=== PATIENT | female | born 1995 | race Hispanic/Latino ===

== ENCOUNTER 2024-07-31 10:38 | Emergency (ER) | payer OTHER, SELFPAY ==
[2024-07-31 10:46] VITALS: BP 123/68; PULSE 79; RESP 14; TEMP 36.5; O2SAT 99; BMI 29.8
--- NOTE | 2024-07-31 11:33 | ED.PREGNANCY ---
HPI - General Chief complaint: OB/Uterine Contractions Stated complaint: Bleeding w/ 12 weeks Time Seen by Provider: 07/31/24 10:58 Source: patient Mode of arrival: Family Vehicle Limitations: no limitations History of Present Illness HPI Narrative: Ms. Major is a very pleasant 29-year-old female, , currently states she is about 12 weeks , LMP however 05/24/2024 (estimated gestation 9 weeks 5 days) who presents to the emergency department for cramping and bleeding in . Patient states 07/16/2023 she started having some bleeding so she went to the ER and had an ultrasound performed which reports that she was 5-6 weeks and there was ?3 sacs?. The bleeding stopped after 2 days. However about 1 week ago she started having some light spotting but was told by the ER that this can be normal so she was trying to not worry however yesterday she started having some heavier bleeding and passing clots after exercising. She was also having some lower abdominal cramping. At this time she states she has very minimal 2/10 lower abdominal occasional cramping and she has somewhat steady light bleeding, she is only needing to use panty liners. She presents to the emergency department for further evaluation of bleeding in . She has not yet seen an OBGYN with this however she does have her 1st appointment scheduled this Thursday with Dr. Madden, her intake has already been completed. She is , not concerned for STDs, no abnormal vaginal discharge or dysuria. No back or flank pain. No fevers chills. No history of surgeries or medical problems. LMP 05/24/2024, estimated gestation 9 weeks 5 days. Positive home test on 06/26/24. Related Data Home Medications Medication Instructions Recorded Confirmed vitamin-ferrous sulfate tab PO 07/26/24 07/26/24 27 mg iron-folic acid 0.8 mg tablet Previous Rx's Medication Instructions Recorded cephalexin 500 mg capsule 500 mg PO TID 7 days #21 caps 07/31/24 Allergies Allergy/AdvReac Type Severity Reaction Status Date / Time No Known Drug Allergies Allergy Verified 07/31/24 10:53 Review of Systems Review of Systems ROS Unobtainable: All systems reviewed & are unremarkable except as noted in HPI and below Exam Narrative Exam Narrative: GENERAL: 29 year old patient appears stated age. Well-developed patient, in no acute distress. HEAD: Atraumatic. Normocephalic. NECK: Trachea midline. Cervical ROM intact. CARDIOVASCULAR: Regular rate and rhythm. RESPIRATORY: ?Nonlabored respirations. ?Speaking in clear, full sentences. ?Clear to auscultation. Breath sounds equal bilaterally. No wheezes, rales, or rhonchi. ? GASTROINTESTINAL: Abdomen soft, non-tender, nondistended. Normal BS : declined EXTREMITIES: No edema or joint tenderness. BACK: Nontender without deformity or crepitance. No flank tenderness. NEURO: AOx3. ?Clear speech. ?Moves all 4 extremities appropriately. SKIN: No rash or erythema of visible areas Initial Vital Signs Initial Vital Signs: Vital Signs Temperature 97.7 F 07/31/24 10:46 Pulse Rate 79 07/31/24 10:46 Respiratory Rate 14 07/31/24 10:46 Blood Pressure 123/68 07/31/24 10:46 Pulse Oximetry 99 07/31/24 10:46 Oxygen Delivery Method Room Air 07/31/24 10:46 Course Orders Ordered: ED Orders 07/31/24 11:44 US OB <= 14 weeks fetus Stat 07/31/24 12:05 ABO RH Type Stat CBC Auto Diff [Complete Blood Count AUTO DIFF] Stat CMP [Comprehensive Metabolic Panel] Stat HCG Quantitative /Beta subunit Stat PT [Prothrombin Time INR] Stat PTT Partial Thromboplastin Cheng Stat 07/31/24 13:00 Urine Culture Stat Urine Microscopic Stat Consultations Consultation #1: Consulted OBGYN on-call Dr. Hummel. Discussed patient ultrasound, hCG, clinical picture. At this time reassured that likely not ectopic, recommends giving the patient bleeding precautions, we discussed that this may be an abnormal or nonviable , but she is appropriate to follow up with her OBGYN on Thursday. Time: 14:25 Vital Signs Vital signs: Vital Signs - 8 hr 07/31/24 10:46 07/31/24 14:50 Temperature 97.7 F Pulse Rate 79 64 Respiratory Rate 14 16 Blood Pressure 123/68 102/66 Pulse Oximetry 99 98 Oxygen Delivery Method Room Air Room Air MDM - OB/Uterine Contractions Medical Records Attestation: I reviewed the patient's medical records. Lab Data 07/31/24 12:05 07/31/24 12:05 Labs: Lab Results 07/31/24 07/31/24 Range/Units 12:05 13:00 WBC 7.6 (4.5-11.0) X10^3/uL RBC 4.28 (4.0-5.2) X10^6/uL Hgb 13.3 (12.0-16.0) g/dL Hct 38.6 (36-46) % MCV 90.1 (80-100) fL MCH 31.2 (26-34) PG MCHC 34.6 (30-36) % RDW 13.4 (11.6-14.8) % Plt Count 329 (150-400) X10^3/uL Neut % (Auto) 65.3 (50-75) % Lymph % (Auto) 22.7 L (25-40) % [place] % (Auto) 8.3 (3-14) % Eos % (Auto) 3.2 (2-4) % Baso % (Auto) 0.5 (0-2) % Neut # (Auto) 5000 (1411-3168) /uL Lymph # (Auto) 1700 (9963-5846) /uL [place] # (Auto) 600 (0-900) /uL Eos # (Auto) 200 (0-450) /uL Baso # (Auto) 0 (0-100) /uL PT 10.5 (9.4-12.5) SECONDS INR 0.9 (0.9-1.3) APTT 33 (25.1-36.5) SECONDS Sodium 135 L (137-145) mmol/L Potassium 3.5 (3.4-5.1) mmol/L Chloride 106 (98-107) mmol/L Carbon Dioxide 20 L (22-32) mmol/L BUN 8 (7-17) mg/dL Creatinine 0.63 (0.52-1.04) mg/dL Estimated GFR > 60 (>60) mL/min BUN/Creatinine Ratio 12.7 (6-22) Glucose 117 H (70-100) mg/dL Calcium 9.1 (8.4-10.2) mg/dL Total Bilirubin 0.4 (0.2-1.3) mg/dL AST 43 H (14-36) IU/L ALT 34 (<35) IU/L Alkaline Phosphatase 66 (38-126) U/L Total Protein 7.0 (6.3-8.2) g/dL Albumin 4.0 (3.5-5.0) g/dL Globulin 3.0 (1.7-4.1) g/dL Albumin/Globulin Ratio 1.3 (1.0-2.8) HCG, Quant 46289 mIU/mL Urine RBC 5-10/hpf H (0-5/HPF) Urine WBC 1-5/hpf (0-5/HPF) Ur Squamous Epith Cells 1-5 /hpf (0-5/HPF) Urine Bacteria Many (>30) H (None) Ur Culture Indicated? Specimen cultured Vol Urine Centrifuged 10ml (spun) Blood Type A Positive Imaging Data US - OB: Radiologist's Impression: PROCEDURE: US OB <= 14 WEEKS FETUS INDICATIONS: LMP 05/24/24; bleeding cramping clots OUTSIDE/PRIOR DATING DATA: Last menstrual period (LMP): 05/21/2024. LMP-based estimated date of delivery (DENA): 02/25/2025. TECHNIQUE: Real-time scanning was performed of the fetus and maternal pelvic organs, with image documentation. Endovaginal scanning was also performed to better visualize the fetus and maternal ovaries. COMPARISON: None. FINDINGS: There are 3 gestational sacs present, measuring 1.2 cm, 1 cm, and 1.3 cm. No pole is identified. No yolk sac identified. 2.3 x 1 cm subchronic hemorrhage is seen. IMPRESSION: There are 3 intrauterine gestational sacs. No yolk sac identified. No pole identified. of unknown viability, possibly triplet. Short interval follow-up is recommended in 14 days or sooner. Small subchorionic hemorrhage. [facility] Narrative Medical decision making narrative: 29-year-old female, , currently states she is about 12 weeks , LMP however 05/24/2024 (estimated gestation 9 weeks 5 days) who presents to the emergency department for cramping and bleeding in . Patient states 07/16/2023 she started having some bleeding so she went to the ER and had an ultrasound performed which reports that she was 5-6 weeks and there was ?3 sacs?, believes to have triplets, medical records requested. Differential diagnosis includes but is not limited to subchorionic hemorrhage, threatened , inevitable , incomplete , complete , missed , ectopic , gestational trophoblastic disease, molar , fibroids, cervicitis, etc. On exam patient is in no acute distress, nontoxic appearing, vital signs within normal limits. She is reporting very minimal but consistent amount of bleeding and some cramping concerning as she is currently . We were unable to get the records from ER however she reports that on 07/16/2024 her hCG quant was 14,000 and her ultrasound revealed 3 gestational sacs about 5-6 weeks. We will recheck labs, imaging, HCG. Labs reveal normal WBC count 7.6, hemoglobin 13.3 and hematocrit 38.6. Normal coags. Sodium 135, potassium 3.5, BUN 8 and creatinine 0.63. AST very slightly elevated at 43. Normal glucose 117. Her hCG quant today is 21,045. Her urine does reveal 5-10 RBC, many bacteria, concerning for asymptomatic bacteriuria in . Patient does admit to a history of frequent UTIs but denies any current UTI symptoms. Ultrasound reveals 3 intrauterine gestational sac, no yolk sac, no pole, of unknown viability, possibly triplet. Short interval follow up is recommended in 14 days or sooner. Small subchorionic hemorrhage. OBGYN on-call was consulted given concerns for inappropriately developing . After shared decision-making with OBGYN in the patient, patient is appropriate to follow up outpatient with her previously scheduled appointment on Thursday. We discussed strict ER return precautions including bleeding precautions. Discussed with the patient that there is possibility this is abnormal, not viable or miscarriage. Patient and her spouse verbalized understanding of all information or agreeable to the plan. She is stable for discharge home and follow up with her OBGYN on Thursday. Discharge Plan Departure Patient Disposition: Home Clinical Impression: Vaginal bleeding during , Asymptomatic bacteriuria during Instructions: DI for Vaginal Bleeding During Activity Restrictions/Additional Instructions: Thank you for coming to the emergency department today. You were evaluated for bleeding during . Your ultrasound reveals 3 intrauterine gestational sacs however there is no yolk sac or pole therefore this is a of unknown viability, possibly triplet. You also have a small subchorionic hemorrhage. Your hCG level is 21,045. It is very important to follow up with your OBGYN, Dr. Madden, on Thursday as scheduled. Please return to the emergency department immediately if you develop persistent bleeding, fevers, or severe pain. If you are soaking 1 menstrual pad an hour or more with blood, you should come back to the emergency department. You have also been prescribed antibiotics for bacteria in your urine, while we typically do not treat bacteria in the urine without symptoms, because you are we should. Please complete the full course of antibiotics unless your OBGYN recommend you stop them. Please follow up with your primary care doctor within the next 2-3 days for ER follow-up. (If you do not have a PCP you can call [phone]. ?to schedule an appointment with an [facility] Primary Care Provider) IF YOU DEVELOP ANY NEW OR WORSENING SYMPTOMS, RETURN TO THE ER! Please read the attached instructions, they highlight more specific treatments and interventions for you at home. Thank you for letting me participate in your care, Mery Garcia PA-C Prescriptions: New cephalexin 500 mg capsule 500 mg PO TID 7 Days Qty: 21 0RF No Action vit-ferrous sulfat-FA 27 mg iron- 0.8 mg tablet PO Referrals: Provider,Jan WEBER [Primary Care Provider] - Ena Madden MD [Physician] - (bleeding, 3 sacs) Stand Alone Forms: Patient Portal/API/Survey
--- NOTE | 2024-07-31 11:44 | DI.US.S_ITS ---
PROCEDURE: US OB <= 14 WEEKS FETUS INDICATIONS: LMP 05/24/24; bleeding cramping clots OUTSIDE/PRIOR DATING DATA: Last menstrual period (LMP): 05/21/2024. LMP-based estimated date of delivery (DENA): 02/25/2025. TECHNIQUE: Real-time scanning was performed of the fetus and maternal pelvic organs, with image documentation. Endovaginal scanning was also performed to better visualize the fetus and maternal ovaries. COMPARISON: None. FINDINGS: There are 3 gestational sacs present, measuring 1.2 cm, 1 cm, and 1.3 cm. No pole is identified. No yolk sac identified. 2.3 x 1 cm subchronic hemorrhage is seen. IMPRESSION: There are 3 intrauterine gestational sacs. No yolk sac identified. No pole identified. of unknown viability, possibly triplet. Short interval follow-up is recommended in 14 days or sooner. Small subchorionic hemorrhage. Dictated by: Tim Stover M.D. on 07/31/2024 at 13:17 Approved by: Tim Stover M.D. on 07/31/2024 at 13:19
[2024-07-31 12:29] LABS: Add Manual Diff / Slide Review NO; Basophils Absolute Auto 0 /uL (0-100); Basophils Percent Auto 0.5 % (0-2); Eosinophils Absolute Auto 200 /uL (0-450); Eosinophils Percent Auto 3.2 % (2-4); Hematocrit 38.6 % (36-46); Hemoglobin 13.3 g/dL (12.0-16.0); Lymphocytes Absolute Auto 1700 /uL (1100-4500); Lymphocytes Percent Auto 22.7 % (25-40); Mean Corpuscular HGB Conc 34.6 % (30-36); Mean Corpuscular Hemoglobin 31.2 PG (26-34); Mean Corpuscular Volume 90.1 fL (80-100); Monocytes Absolute Auto 600 /uL (0-900); Monocytes Percent Auto 8.3 % (3-14); Neutrophils Absolute Auto 5000 /uL (1500-7000); Neutrophils Percent Auto 65.3 % (50-75); Platelet Count 329 X10^3/uL (150-400); Red Blood Cell Count 4.28 X10^6/uL (4.0-5.2); Red Cell Distribution Width 13.4 % (11.6-14.8); White Blood Cell Count 7.6 X10^3/uL (4.5-11.0)
[2024-07-31 12:38] LABS: INR 0.9 (0.9-1.3); Prothrombin Time 10.5 SECONDS (9.4-12.5)
[2024-07-31 12:41] LABS: PTT Partial Thromboplastin Tim 33 SECONDS (25.1-36.5)
[2024-07-31 12:45] LABS: Alanine Aminotransferase 34 IU/L (<35); Albumin Globulin Ratio 1.3 (1.0-2.8); Alkaline Phosphatase 66 U/L (38-126); Aspartate Aminotransferase 43 IU/L (14-36); BUN Creatinine Ratio 12.7 (6-22); Bilirubin Total 0.4 mg/dL (0.2-1.3); Blood Urea Nitrogen 8 mg/dL (7-17); Calcium 9.1 mg/dL (8.4-10.2); Carbon Dioxide 20 mmol/L (22-32); Chloride 106 mmol/L (98-107); Estimated Glomerular Filt Rate > 60 mL/min (>60); Glucose 117 mg/dL (70-100); HEMOLYSIS < 15 (0-50); Potassium 3.5 mmol/L (3.4-5.1); Sodium 135 mmol/L (137-145)
[2024-07-31 13:22] LABS: Urine Volume 10mL (spun)
[2024-07-31 13:24] LABS: Bacteria Urine Many (>30); RBC Urine 5-10/HPF (0-5/HPF); Squamous Epithelial Cell Urine 1-5 /HPF (0-5/HPF)
[2024-07-31 13:25] LABS: Culture Indicated Urine Specimen Cultured; WBC Urine 1-5/HPF (0-5/HPF)
[2024-07-31 13:26] LABS: HCG Quantitative /Beta subunit 21045 mIU/mL
[2024-07-31 14:50] VITALS: BP 102/66; PULSE 64; RESP 16; O2SAT 98
== END 2024-07-31 14:51 | disposition home or self-care (01) ==
PROVIDERS: Emergency Provider Physician Assistant
DX: O20.9 Hemorrhage in early pregnancy, unspecified (principal); O26.891 Other specified pregnancy related conditions, first trimester; R82.71 Bacteriuria; B96.20 Unspecified Escherichia coli [E. coli] as the cause of diseases classified elsewhere; Z3A.09 9 weeks gestation of pregnancy
CPT/HCPCS: 36415; 76801; 80053; 81015; 84702; 85025; 85610; 85730; 86900; 86901; 87077; 87086; 87186; 99284

== ENCOUNTER 2024-08-03 08:54 | Emergency (ER) | payer OTHER, SELFPAY ==
[2024-08-03 09:15] VITALS: BP 110/67; PULSE 75; RESP 10; TEMP 36.8; O2SAT 98; BMI 29.8
--- NOTE | 2024-08-03 09:45 | DI.US.S_ITS ---
PROCEDURE: US OB <= 14 WEEKS FETUS INDICATIONS: Continued miscarriage OUTSIDE/PRIOR DATING DATA: Last menstrual period (LMP): 05/21/2024 LMP-based estimated date of delivery (DENA): 02/25/2025 TECHNIQUE: Real-time scanning was performed of the fetus and maternal pelvic organs, with image documentation. Endovaginal scanning was also performed to better visualize the fetus and maternal ovaries. COMPARISON: [facility], , OB <= 14 WEEKS FETUS, 07/31/2024, 12:38. FINDINGS: Embryo: 3 sac-like structures are seen within endometrium with no pole or yolk sac seen. Large is sac measures 1.2 cm with estimated gestational age of 6 weeks, 0 day. Estimated gestational age based on last menstrual period 10 week, 4 days. Heart rate: No cardiac activity is detected. Maternal organs: Subchorionic hematoma measures 2.6 x 2.3 x 1.1 cm in size is seen compared to 2.3 x 1 x 0.8 cm on previous study. Possible corpus luteum is no left ovary. Greater than 12 follicles are seen in each ovaries . IMPRESSION: 1. 3 possible gestational sac seen within endometrium. No fetus or cardiac activity is detected. Finding is concerning for blighted ovum. 2. Subchorionic hematoma as above, slightly increased in size compared to previous study. 3. Possible corpus luteum in left ovary. Greater than 12 follicles are seen in each ovary which can be seen associated with polycystic ovary syndrome. Clinical correlation is recommended. We strive to produce accurate, complete, and clear reports of imaging services. To assist us in improving patient care, this report was composed using standard report templates and voice recognition software. Therefore, it may contain abnormal punctuation, insertions and/or omissions. Occasional wrong-word or sound-alike substitutions may occur. Though we review the report and make efforts to correct it, we do recommend that the report be read carefully in proper context to recognize any text inaccuracies. Dictated by: Patrick Vergara M.D. on 08/03/2024 at 11:34 Approved by: Patrick Vergara M.D. on 08/03/2024 at 11:38
[2024-08-03 09:57] LABS: Add Manual Diff / Slide Review NO; Basophils Absolute Auto 0 /uL (0-100); Basophils Percent Auto 0.6 % (0-2); Eosinophils Absolute Auto 200 /uL (0-450); Eosinophils Percent Auto 2.3 % (2-4); Hemoglobin 14.2 g/dL (12.0-16.0); Lymphocytes Absolute Auto 1400 /uL (1100-4500); Lymphocytes Percent Auto 19.2 % (25-40); Mean Corpuscular HGB Conc 34.5 % (30-36); Mean Corpuscular Hemoglobin 31.4 PG (26-34); Mean Corpuscular Volume 90.8 fL (80-100); Monocytes Absolute Auto 400 /uL (0-900); Monocytes Percent Auto 5.8 % (3-14); Neutrophils Absolute Auto 5300 /uL (1500-7000); Neutrophils Percent Auto 72.1 % (50-75); Platelet Count 354 X10^3/uL (150-400); Red Blood Cell Count 4.52 X10^6/uL (4.0-5.2); White Blood Cell Count 7.4 X10^3/uL (4.5-11.0)
[2024-08-03 10:05] LABS: Alanine Aminotransferase 34 IU/L (<35); Albumin 4.4 g/dL (3.5-5.0); Albumin Globulin Ratio 1.4 (1.0-2.8); Alkaline Phosphatase 60 U/L (38-126); Aspartate Aminotransferase 42 IU/L (14-36); BUN Creatinine Ratio 14.1 (6-22); Bilirubin Total 0.6 mg/dL (0.2-1.3); Blood Urea Nitrogen 10 mg/dL (7-17); Calcium 9.5 mg/dL (8.4-10.2); Carbon Dioxide 20 mmol/L (22-32); Chloride 107 mmol/L (98-107); Estimated Glomerular Filt Rate > 60 mL/min (>60); Globulin 3.2 g/dL (1.7-4.1); Glucose 105 mg/dL (70-100); HEMOLYSIS 40 (0-50); Sodium 136 mmol/L (137-145); Total Protein 7.6 g/dL (6.3-8.2)
[2024-08-03 11:12] LABS: HCG Quantitative /Beta subunit 16430 mIU/mL
[2024-08-03] MEDS: SODIUM CHLORIDE 0.9% 1,000 ML 1000 ML IV (11:12)
[2024-08-03] MEDS: cefTRIAXone 1,000 MG in SODIUM CHLORIDE 0.9% 100 ML 200 MG IV (11:12)
[2024-08-03 11:39] VITALS: BP 106/51; PULSE 62; O2SAT 99
--- NOTE | 2024-08-03 11:46 | ED.ABDPAIN ---
HPI - Abdominal Pain General Chief Complaint: Abdominal Pain Stated Complaint: Per patient possible miscarriage 12 weeks Time Seen by Provider: 08/03/24 09:45 Source: patient Mode of arrival: Ambulatory History of Present Illness HPI narrative: Patient is a 29-year-old G1 with triplets P 0 presenting to day with abdominal pain and bleeding. She thinks she was about 12 weeks . She actually reports that she started having bleeding to be worry 3rd was seen in [place] where she would ultrasound and told he was having triplets. She started having some bleeding about 5 days ago and then 3 days ago had increased bleeding and pain. She came to the ED no viable material was found and a subchorionic hemorrhage found on ultrasound. She was to follow up yesterday with a be however OB had to cancel due to illness. She was rescheduled with a new Ob whom she has not yet seen. Today she continues to have bleeding some mild cramping and came to the ED. She was also diagnosed with a UTI and has not yet taken her antibiotic but she has filled it. Related Data Home Medications Medication Instructions Recorded Confirmed vitamin-ferrous sulfate tab PO 07/26/24 07/26/24 27 mg iron-folic acid 0.8 mg tablet Previous Rx's Medication Instructions Recorded cephalexin 500 mg capsule 500 mg PO TID 7 days #21 caps 07/31/24 Allergies Allergy/AdvReac Type Severity Reaction Status Date / Time No Known Drug Allergies Allergy Verified 07/31/24 10:53 Patient History Medical History (Updated 08/03/24 @ 18:28 by Adelina Oliveira DO) Acute gastritis Iron deficiency anemia Surgical History (Updated 07/29/24 @ 08:[address]) No pertinent past surgical history Family History (System 07/29/24 @ 08:[address]) Grandfather Hypertension Mother No problems noted. Aunt No problems noted. 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 special lisa needs: No travel history: recent seatbelt use: always water heater temp set < 120 deg: Yes working smoke detector in home: Yes fire extinguisher in home: Yes carbon monox detector in home: Yes firearms in home: Yes firearms unloaded and locked: Yes do you feel safe at home: Yes Smoking Status: Never smoker second hand exposure: No alcohol intake: never substance use type: does not use during the past year weight has: increased > 10 lbs well-balanced diet: rarely or never daily servings fruits/ve-1 caffeine: Yes (aware of 200mg limit) Type(s) of exercise: swimming Smoking Status: Never smoker Exam Initial Vital Signs Initial Vital Signs: Vital Signs Temperature 98.3 F 08/03/24 09:15 Pulse Rate 75 08/03/24 09:15 Respiratory Rate 10 L 08/03/24 09:15 Blood Pressure 110/67 08/03/24 09:15 Pulse Oximetry 98 08/03/24 09:15 Oxygen Delivery Method Room Air 08/03/24 09:15 GENERAL: Alert well-appearing 29-year-old female HEENT: Head atraumatic,EOMI, pupils reactive, face symmetric, moist mucous membranes CARDIOVASCULAR: Regular rate and rhythm without murmurs, rubs or gallops. RESPIRATORY: Breath sounds equal bilaterally, no wheezes rales or rhonchi. ABDOMEN: Soft, nontender. Normoactive bowel sounds all 4 quadrants. No guarding or rebound. EXTREMITIES: Normal range of motion, no clubbing or edema. Neurovascularly intact NEUROLOGICAL: Alert and oriented x4.Normal gait and speech. Cranial nerves II through XII grossly intact. SKIN: Warm, dry, no laceration, no petechiae, no rashes or lesions. Course Orders Ordered: ED Orders 08/03/24 09:35 CBC Auto Diff [Complete Blood Count AUTO DIFF] Stat CMP [Comprehensive Metabolic Panel] Stat 08/03/24 09:45 US OB <= 14 weeks fetus Stat 08/03/24 10:11 HCG Quantitative /Beta subunit Stat Discontinued Medications Sodium Chloride (Normal Saline 0.9%) 1,000 mls @ 1,000 mls/hr IV BOLUS ONE Stop: 08/03/24 10:44 Last Infusion: 08/03/24 12:43 Dose: Infused Documented By: Admin: 08/03/24 11:12 Dose: 1,000 mls/hr Documented By: J LUIS Ceftriaxone Sodium 1,000 mg/ (Sodium Chloride) 100 mls @ 200 mls/hr IV NOW ONE Stop: 08/03/24 09:46 Last Infusion: 08/03/24 11:49 Dose: Infused Documented By: Admin: 08/03/24 11:12 Dose: 200 mls/hr Documented By: J LUIS Vital Signs Vital signs: Vital Signs - 8 hr 08/03/24 11:39 08/03/24 12:00 08/03/24 12:30 Pulse Rate 62 67 61 Respiratory Rate 16 Blood Pressure 106/51 L 103/66 102/58 L Pulse Oximetry 99 99 98 Oxygen Delivery Method Room Air MDM - Abdominal Pain Lab Data 08/03/24 09:35 08/03/24 09:35 Labs: Lab Results 08/03/24 08/03/24 Range/Units 09:35 10:11 WBC 7.4 (4.5-11.0) X10^3/uL RBC 4.52 (4.0-5.2) X10^6/uL Hgb 14.2 (12.0-16.0) g/dL Hct 41.0 (36-46) % MCV 90.8 (80-100) fL MCH 31.4 (26-34) PG MCHC 34.5 (30-36) % RDW 14.0 (11.6-14.8) % Plt Count 354 (150-400) X10^3/uL Neut % (Auto) 72.1 (50-75) % Lymph % (Auto) 19.2 L (25-40) % [place] % (Auto) 5.8 (3-14) % Eos % (Auto) 2.3 (2-4) % Baso % (Auto) 0.6 (0-2) % Neut # (Auto) 5300 (6811-3927) /uL Lymph # (Auto) 1400 (9546-5982) /uL [place] # (Auto) 400 (0-900) /uL Eos # (Auto) 200 (0-450) /uL Baso # (Auto) 0 (0-100) /uL Sodium 136 L (137-145) mmol/L Potassium 4.0 (3.4-5.1) mmol/L Chloride 107 (98-107) mmol/L Carbon Dioxide 20 L (22-32) mmol/L BUN 10 (7-17) mg/dL Creatinine 0.71 (0.52-1.04) mg/dL Estimated GFR > 60 (>60) mL/min BUN/Creatinine Ratio 14.1 (6-22) Glucose 105 H (70-100) mg/dL Calcium 9.5 (8.4-10.2) mg/dL Total Bilirubin 0.6 (0.2-1.3) mg/dL AST 42 H (14-36) IU/L ALT 34 (<35) IU/L Alkaline Phosphatase 60 (38-126) U/L Total Protein 7.6 (6.3-8.2) g/dL Albumin 4.4 (3.5-5.0) g/dL Globulin 3.2 (1.7-4.1) g/dL Albumin/Globulin Ratio 1.4 (1.0-2.8) HCG, Quant 24753 mIU/mL Imaging Data US - OB: Radiologist's Impression: PROCEDURE: US OB <= 14 WEEKS FETUS INDICATIONS: Continued miscarriage OUTSIDE/PRIOR DATING DATA: Last menstrual period (LMP): 05/21/2024 LMP-based estimated date of delivery (DENA): 02/25/2025 TECHNIQUE: Real-time scanning was performed of the fetus and maternal pelvic organs, with image documentation. Endovaginal scanning was also performed to better visualize the fetus and maternal ovaries. COMPARISON: [facility], , US OB <= 14 WEEKS FETUS, 07/31/2024, 12:38. FINDINGS: Embryo: 3 sac-like structures are seen within endometrium with no pole or yolk sac seen. Large is sac measures 1.2 cm with estimated gestational age of 6 weeks, 0 day. Estimated gestational age based on last menstrual period 10 week, 4 days. Heart rate: No cardiac activity is detected. Maternal organs: Subchorionic hematoma measures 2.6 x 2.3 x 1.1 cm in size is seen compared to 2.3 x 1 x 0.8 cm on previous study. Possible corpus luteum is no left ovary. Greater than 12 follicles are seen in each ovaries . IMPRESSION: 1. 3 possible gestational sac seen within endometrium. No fetus or cardiac activity is detected. Finding is concerning for blighted ovum. 2. Subchorionic hematoma as above, slightly increased in size compared to previous study. 3. Possible corpus luteum in left ovary. Greater than 12 follicles are seen in each ovary which can be seen associated with polycystic ovary syndrome. Clinical correlation is recommended. We strive to produce accurate, complete, and clear reports of imaging services. To assist us in improving patient care, this report was composed using standard report templates and voice recognition software. Therefore, it may contain abnormal punctuation, insertions and/or omissions. Occasional wrong-word or sound-alike substitutions may occur. Though we review the report and make efforts to correct it, we do recommend that the report be read carefully in proper context to recognize any text inaccuracies. Dictated by: Patrick Vergara M.D. on 08/03/2024 at 11:34 MDM Narrative Medical decision making narrative: Patient is a 29-year-old female currently triplets presenting today with vaginal bleeding. She was 3 days ago for the same diagnosed with UTI concern for miscarriage She was Rh positive WBC 7.4 hemoglobin 14.2 hematocrit 14.2 HCG 16,430 previously 21,045 Electrolytes within normal limits Ultrasound again shows subchorionic hemorrhage 3 sac-like structure layers with no pole or yolk sac OB note reviewed from 07/26/2024: LMP 05/24, +UPT 06/26, US at 5-6 weeks mid Jul); multiple sacs seen 12:09 Dr. Napoles, updated patient's results. She reports the patient has a follow up appointment on Thursday okay to wait until then no interventions at this time Updated patient on plan and follow up with Ob she was overall feeling better. She gets did get a dose of Rocephin for UTI. She has not yet had antibiotics. She overall does not appear septic. Urine culture positive for E coli resistant to Cipro Levaquin and Bactrim. She has a prescription at home and will start taking it now Discharge Plan Departure Patient Disposition: Home Clinical Impression: Incomplete miscarriage, UTI (urinary tract infection) Instructions: DI for Miscarriage Activity Restrictions/Additional Instructions: *You have been diagnosed with miscarriage *What to do: At this time please follow-up with OBGYN on Thursday as scheduled. *Continue to take medications as directed Please take antibiotic as previously prescribed start tonight a were given 1 dose through the IV in the ED *Follow up with your primary care provider in 2-3 days or call [phone] Dr. Kirk *Return to ER if you should have increased vaginal bleeding going through more than 2 super pads in 1 hour dizziness lightheadedness or severe abdominal pain or any new, worsening or concerning symptoms Prescriptions: No Action vit-ferrous sulfat-FA 27 mg iron- 0.8 mg tablet PO cephalexin 500 mg capsule 500 mg PO TID 7 Days Qty: 21 0RF Referrals: Provider,Jan WEBER [Primary Care Provider] - Ena Madden MD [Physician] - Stand Alone Forms: Patient Portal/API/Survey
[2024-08-03 12:00] VITALS: BP 103/66; PULSE 67; O2SAT 99
[2024-08-03 12:30] VITALS: BP 102/58; PULSE 61; RESP 16; O2SAT 98
== END 2024-08-03 12:54 | disposition home or self-care (01) ==
PROVIDERS: Emergency Provider Emergency Medicine
DX: O03.4 Incomplete spontaneous abortion without complication (principal); N39.0 Urinary tract infection, site not specified
CPT/HCPCS: 76801; 76802; 76817; 80053; 84702; 85025; 96365; 99283; 99284; J0696

== ENCOUNTER 2024-08-04 11:24 | Observation (INO) | payer OTHER, SELFPAY ==
--- NOTE | 2024-08-04 | PATH_ITS ---
[facility] Accession Number: [id number] No. of containers..01 Tissue . 01 Material submitted: . uterus - UTERINE CONTENTS . 01 Diagnosis: UTERINE CONTENTS, CURETTAGE: Immature chorionic villi and decidua with breakdown, consistent with products of conception. No tissue identified. V 08/08/2024 1718 Local . 01 Electronically signed: . Muna Renteria DO, Pathologist NPI- [id number] . 01 Gross description: . Received in formalin labeled with two patient identifiers and uterine contents, and consists of a 7.2 x 5.0 x 2.1 cm aggregate of clotted blood and fibromembranous tissue. In addition, there is a 0.8 cm in greatest dimension clear serous fluid-filled saccular tissue surrounded by white papilliferous tissue. No tissue is identified. The saccular papilliferous tissue is submitted in cassettes A1-A2. ([id number]) /SHUKRI 08/05/2024 1155 Local . 01 Pathologist provided ICD-10: O03.9 . 01 CPT . 022895 Specimen Comment: A courtesy copy of this report has been sent to [facility] Pathology Performed at: [address] [facility], [place], [place] [id number] MD Haresh Haro MD Phone: [phone]
[2024-08-04 11:27] VITALS: PULSE 72; RESP 16; TEMP 36.4; O2SAT 100; BMI 29.8
[2024-08-04 11:51] LABS: Add Manual Diff / Slide Review NO; Basophils Absolute Auto 100 /uL (0-100); Basophils Percent Auto 0.9 % (0-2); Eosinophils Absolute Auto 100 /uL (0-450); Eosinophils Percent Auto 1.3 % (2-4); Hematocrit 37.3 % (36-46); Hemoglobin 12.8 g/dL (12.0-16.0); Lymphocytes Absolute Auto 2200 /uL (1100-4500); Lymphocytes Percent Auto 20.5 % (25-40); Mean Corpuscular HGB Conc 34.5 % (30-36); Mean Corpuscular Hemoglobin 31.1 PG (26-34); Mean Corpuscular Volume 90.4 fL (80-100); Monocytes Absolute Auto 600 /uL (0-900); Monocytes Percent Auto 5.8 % (3-14); Neutrophils Absolute Auto 7700 /uL (1500-7000); Neutrophils Percent Auto 71.5 % (50-75); Platelet Count 320 X10^3/uL (150-400); Red Blood Cell Count 4.12 X10^6/uL (4.0-5.2); Red Cell Distribution Width 13.5 % (11.6-14.8); White Blood Cell Count 10.8 X10^3/uL (4.5-11.0)
[2024-08-04 12:02] LABS: Alanine Aminotransferase 34 IU/L (<35); Albumin Globulin Ratio 1.3 (1.0-2.8); Alkaline Phosphatase 70 U/L (38-126); Aspartate Aminotransferase 38 IU/L (14-36); Bilirubin Total 0.4 mg/dL (0.2-1.3); Blood Urea Nitrogen 8 mg/dL (7-17); Calcium 8.9 mg/dL (8.4-10.2); Carbon Dioxide 16 mmol/L (22-32); Chloride 108 mmol/L (98-107); Estimated Glomerular Filt Rate > 60 mL/min (>60); Globulin 3.1 g/dL (1.7-4.1); Glucose 113 mg/dL (70-100); HEMOLYSIS < 15 (0-50); Potassium 3.3 mmol/L (3.4-5.1); Sodium 135 mmol/L (137-145); Total Protein 7.1 g/dL (6.3-8.2)
[2024-08-04 12:19] LABS: HCG Quantitative /Beta subunit 11290 mIU/mL
--- NOTE | 2024-08-04 12:47 | ED.PREGNANCY ---
HPI - General Chief complaint: Abdominal Pain Stated complaint: Miscarriage, bleeding Time Seen by Provider: 08/04/24 12:24 Source: EMS Mode of arrival: EMS Limitations: no limitations History of Present Illness HPI Narrative: Patient here brought in by ambulance from work for vaginal bleeding. Patient is 12 weeks . Seen here yesterday for the same. Patient is with possible triplets/. Had been changing pad 1 every hour yesterday/last night but this morning had a lot of bleeding. No dizziness no syncope. Patient originally seen at [facility] and then was referred here, patient is in the , was not able to see Dr. Kirk with OBGYN last week or this week because of provider scheduled. Patient is taking vitamins Related Data Home Medications Medication Instructions Recorded Confirmed vitamin-ferrous sulfate tab PO 07/26/24 07/26/24 27 mg iron-folic acid 0.8 mg tablet Previous Rx's Medication Instructions Recorded cephalexin 500 mg capsule 500 mg PO TID 7 days #21 caps 07/31/24 Allergies Allergy/AdvReac Type Severity Reaction Status Date / Time No Known Drug Allergies Allergy Verified 07/31/24 10:53 Review of Systems Review of Systems Narrative: GENERAL: Negative chills, fatigue, malaise, fever, sweats. HEENT: Negative sinus pain, ear pain, sore throat RESPIRATORY: Negative dyspnea, cough CARDIOVASCULAR: Negative chest pain, palpitations GASTROINTESTINAL: Negative nausea, vomiting, abdominal pain : Negative dysuria, frequency, hematuria, positive pelvic pain, positive vaginal bleeding MUSCULOSKELETAL: Negative muscle or bony pain SKIN: Negative rash, skin lesions NEUROLOGIC: Negative weakness, numbness ROS Unobtainable: All systems reviewed & are unremarkable except as noted in HPI and below Exam Narrative Exam Narrative: GENERAL: in no distress, not toxic not dyspneic HEAD: Normocephalic. EYES: Pupils equal round ENT: Mucous membranes moist. NECK: Trachea midline. CARDIOVASCULAR: Regular rate and rhythm RESPIRATORY: Clear to auscultation. Breath sounds equal bilaterally. No wheezes, rales, or rhonchi. GASTROINTESTINAL: Abdomen soft, reproduces mild pelvic tenderness. No peritoneal signs. No pain out of portion exam. Bowel sounds are present. No guarding no rebound. No CVA tenderness EXTREMITIES: No gross deformities. BACK: No flank tenderness. NEURO: AOx4. Clear speech SKIN: Warm and dry PSYCH: Not anxious, is cooperative Initial Vital Signs Initial Vital Signs: Vital Signs Temperature 97.5 F L 08/04/24 11:27 Pulse Rate 72 08/04/24 11:27 Respiratory Rate 16 08/04/24 11:27 Pulse Oximetry 100 08/04/24 11:27 Oxygen Delivery Method Room Air 08/04/24 11:27 Course Orders Ordered: ED Orders 08/04/24 11:34 Complete Blood Count AUTO DIFF Stat Comprehensive Metabolic Panel Stat HCG Quantitative /Beta subunit Stat Type and Screen Stat 08/04/24 13:18 US OB <= 14 weeks fetus Stat Doxycycline Hyclate (Doxycycline Hyclate 100 Mg Tablet) 200 mg PO PREOP JEMAL Last Admin: 08/04/24 14:30 Dose: 200 mg Documented By: CG Hydromorphone HCl (Hydromorphone 1 Mg Inj) 0 mg IV Q5MIN PRN PRN Reason: Pain, Mild (1-3) Hydromorphone HCl (Hydromorphone 1 Mg Inj) 0 mg IV Q5MIN PRN PRN Reason: Pain, Severe (7-10) Lactated Ringer's (Lactated Ringers) 1,000 mls @ 42 mls/hr IV CONT JEMAL Last Admin: 08/04/24 15:51 Dose: 42 mls/hr Documented By: Infusion: 08/04/24 15:50 Dose: Infused Documented By: Admin: 08/04/24 14:23 Dose: 42 mls/hr Documented By: CG Ondansetron HCl (Ondansetron 4 Mg/2 Ml Inj) 4 mg IV NOW PRN PRN Reason: Nausea And Vomiting Oxycodone HCl (Oxycodone Ir 5 Mg Tablet) 5 mg PO PACUNOW PRN PRN Reason: Mild or moderate pain Oxycodone HCl (Oxycodone Ir 5 Mg Tablet) 5 mg PO Q4HR PRN PRN Reason: Pain, Moderate (4-6) Discontinued Medications Acetaminophen (Ofirmev) 1,000 mg in 100 mls @ 400 mls/hr IV NOW ONE Stop: 08/04/24 16:04 Last Infusion: 08/04/24 15:50 Dose: Infused Documented By: Admin: 08/04/24 15:45 Dose: 400 mls/hr Documented By: GALE Tranexamic Acid 1,000 mg/ (Sodium Chloride) 100 mls @ 200 mls/hr IV NOW ONE Stop: 08/04/24 16:25 Last Admin: 08/04/24 15:56 Dose: 200 mls/hr Documented By: AB Ondansetron HCl (Ondansetron 4 Mg/2 Ml Inj) 4 mg IV NOW ONE Stop: 08/04/24 15:13 Last Admin: 08/04/24 15:14 Dose: 4 mg Documented By: CG Ondansetron HCl (Ondansetron 4 Mg/2 Ml Inj) 4 mg IV NOW ONE Stop: 08/04/24 15:13 Scopolamine (Scopolamine 1 Patch) 1 patch TOP NOW ONE Stop: 08/04/24 15:13 Last Admin: 08/04/24 15:24 Dose: 1 patch Documented By: Admin: 08/04/24 15:14 Dose: Not Given Documented By: ILEANA Scopolamine (Scopolamine 1 Patch) 1 patch TOP NOW ONE Stop: 08/04/24 15:14 Vital Signs Vital signs: Vital Signs - 8 hr 08/04/24 11:27 08/04/24 14:17 Temperature 97.5 F L 98.4 F Pulse Rate 72 83 Respiratory Rate 16 20 Blood Pressure 124/80 Pulse Oximetry 100 99 Oxygen Delivery Method Room Air Room Air MDM - OB/Uterine Contractions Lab Data 08/04/24 11:34 08/04/24 11:34 Labs: Lab Results 08/04/24 Range/Units 11:34 WBC 10.8 (4.5-11.0) X10^3/uL RBC 4.12 (4.0-5.2) X10^6/uL Hgb 12.8 (12.0-16.0) g/dL Hct 37.3 (36-46) % MCV 90.4 (80-100) fL MCH 31.1 (26-34) PG MCHC 34.5 (30-36) % RDW 13.5 (11.6-14.8) % Plt Count 320 (150-400) X10^3/uL Neut % (Auto) 71.5 (50-75) % Lymph % (Auto) 20.5 L (25-40) % [place] % (Auto) 5.8 (3-14) % Eos % (Auto) 1.3 L (2-4) % Baso % (Auto) 0.9 (0-2) % Neut # (Auto) 7700 H (5411-1697) /uL Lymph # (Auto) 2200 (1143-9546) /uL [place] # (Auto) 600 (0-900) /uL Eos # (Auto) 100 (0-450) /uL Baso # (Auto) 100 (0-100) /uL Sodium 135 L (137-145) mmol/L Potassium 3.3 L (3.4-5.1) mmol/L Chloride 108 H (98-107) mmol/L Carbon Dioxide 16 L (22-32) mmol/L BUN 8 (7-17) mg/dL Creatinine 0.57 (0.52-1.04) mg/dL Estimated GFR > 60 (>60) mL/min BUN/Creatinine Ratio 14.0 (6-22) Glucose 113 H (70-100) mg/dL Calcium 8.9 (8.4-10.2) mg/dL Total Bilirubin 0.4 (0.2-1.3) mg/dL AST 38 H (14-36) IU/L ALT 34 (<35) IU/L Alkaline Phosphatase 70 (38-126) U/L Total Protein 7.1 (6.3-8.2) g/dL Albumin 4.0 (3.5-5.0) g/dL Globulin 3.1 (1.7-4.1) g/dL Albumin/Globulin Ratio 1.3 (1.0-2.8) HCG, Quant 25997 mIU/mL Blood Type A Positive Antibody Screen Negative Imaging Data US - OB: Radiologist's Impression: [place] [address] Ultrasound Report Signed Patient: Linh Major MR#: [id number] : 1995 Acct:[id number] Age/Sex: 29 / F Date of Service: 08/04/24 Loc: 90A-1 Accession Number: [id number] Procedure: US OB <= 14 weeks fetus Ordering Provider: Ephraim Martinez MD PROCEDURE: US OB <= 14 WEEKS FETUS INDICATIONS: MISCARRIAGE - ?RETAINED PRODUCTS OUTSIDE/PRIOR DATING DATA: Last menstrual period (LMP): 05/21/2020. LMP-based estimated date of delivery (DENA): 02/25/2025. TECHNIQUE: Real-time scanning was performed of the fetus and maternal pelvic organs, with image documentation. Endovaginal scanning was also performed to better visualize the fetus and maternal ovaries. COMPARISON: Outside Facility, , OB <= 14 WEEKS FETUS, 07/11/2024, 6:08. [facility], , OB <= 14 WEEKS FETUS, 08/03/2024, 10:18. FINDINGS: Embryo: There are 3 cystic structures within the uterine fundus, possibly gestational sacs measuring 1.1 cm, 1.0 cm and 0.8 cm. These range from 5 weeks and 4 days to 5 weeks and 6 days based on size. No poles or yolk sacs are identified. Heart rate: None detected, no poles are seen. Maternal organs: Subchronic hemorrhage measuring 2.9 x 2.2 x 1.7 cm, previously 2.6 x 2.3 x 1.1 cm. Ovaries are not well seen. IMPRESSION: Again seen 3 cystic structures within the uterine fundus as described above. If these are gestational sacs, the largest is consistent with 5 weeks and 6 days. Based on last menstrual period, estimated gestational age is 10 weeks and 5 days. Minimal change when compared to ultrasound from 07/11/2024 raising concern for miscarriage and retained products of conception. Recommend clinical correlation. Perigestational bleed is mildly increased in size measuring up to 2.9 cm. We strive to produce accurate, complete, and clear reports of imaging services. To assist us in improving patient care, this report was composed using standard report templates and voice recognition software. Therefore, it may contain abnormal punctuation, insertions and/or omissions. Occasional wrong-word or sound-alike substitutions may occur. Though we review the report and make efforts to correct it, we do recommend that the report be read carefully in proper context to recognize any text inaccuracies. Dictated by: Xavi Reed M.D. on 08/04/2024 at 14:17 Approved by: Xavi Reed M.D. on 08/04/2024 at 14:25 MDM Narrative Medical decision making narrative: Patient here brought in by ambulance from work for vaginal bleeding. Patient is 12 weeks . Seen here yesterday for the same. Patient is with possible triplets/. Had been changing pad 1 every hour yesterday/last night but this morning had a lot of bleeding. No dizziness no syncope. Patient originally seen at [facility] ER and then was referred here, patient is in the , was not able to see Dr. Kirk with OBGYN last week or this week because of provider scheduled. Patient is taking vitamins After history and exam CBC CMP quantitative hCG OBGYN consult MDM Medical records reviewed: ER visit ultrasound laboratory studies from yesterday here. Differential considered: Includes but not limited to threatened miscarriage active miscarriage missed Lab Test results independently reviewed as above. Pertinent findings: WBC 10.8 hemoglobin 12.8 hematocrit 37.3 platelets 320 quantitative hCG 11,290 down from 16,430 thousand four hundred thirty yesterday Images reviewed Again seen 3 cystic structures within the uterine fundus as described above. If these are gestational sacs, the largest is consistent with 5 weeks and 6 days. Based on last menstrual period, estimated gestational age is 10 weeks and 5 days. Minimal change when compared to ultrasound from 07/11/2024 raising concern for miscarriage and retained products of conception. Recommend clinical correlation. Perigestational bleed is mildly increased in size measuring up to 2.9 cm. Consultations: 12:[address] Pena is at bedside with patient reviewing results and disposition plan. 1:[address] Pena would like pelvic ultrasound to evaluate for retained products Treatments: None indicated at this time Re-evaluations: 2:[address] Pena has decided to take patient to the operating for D&C. Discussion: Appropriate for admission. [facility] [employer] service has seen patient for surgery today. Diagnosis: Threatened miscarriage Discharge Plan Departure Patient Disposition: Admitted to Surgery Clinical Impression: Incomplete miscarriage Admit Date/Time: 08/04/24 14:26 Admit Provider: Ruba Hummel
--- NOTE | 2024-08-04 13:18 | DI.US.S_ITS ---
PROCEDURE: US OB <= 14 WEEKS FETUS INDICATIONS: MISCARRIAGE - ?RETAINED PRODUCTS OUTSIDE/PRIOR DATING DATA: Last menstrual period (LMP): 05/21/2020. LMP-based estimated date of delivery (DENA): 02/25/2025. TECHNIQUE: Real-time scanning was performed of the fetus and maternal pelvic organs, with image documentation. Endovaginal scanning was also performed to better visualize the fetus and maternal ovaries. COMPARISON: Outside Facility, , OB <= 14 WEEKS FETUS, 07/11/2024, 6:08. [facility], , OB <= 14 WEEKS FETUS, 08/03/2024, 10:18. FINDINGS: Embryo: There are 3 cystic structures within the uterine fundus, possibly gestational sacs measuring 1.1 cm, 1.0 cm and 0.8 cm. These range from 5 weeks and 4 days to 5 weeks and 6 days based on size. No poles or yolk sacs are identified. Heart rate: None detected, no poles are seen. Maternal organs: Subchronic hemorrhage measuring 2.9 x 2.2 x 1.7 cm, previously 2.6 x 2.3 x 1.1 cm. Ovaries are not well seen. IMPRESSION: Again seen 3 cystic structures within the uterine fundus as described above. If these are gestational sacs, the largest is consistent with 5 weeks and 6 days. Based on last menstrual period, estimated gestational age is 10 weeks and 5 days. Minimal change when compared to ultrasound from 07/11/2024 raising concern for miscarriage and retained products of conception. Recommend clinical correlation. Perigestational bleed is mildly increased in size measuring up to 2.9 cm. We strive to produce accurate, complete, and clear reports of imaging services. To assist us in improving patient care, this report was composed using standard report templates and voice recognition software. Therefore, it may contain abnormal punctuation, insertions and/or omissions. Occasional wrong-word or sound-alike substitutions may occur. Though we review the report and make efforts to correct it, we do recommend that the report be read carefully in proper context to recognize any text inaccuracies. Dictated by: Xavi Reed M.D. on 08/04/2024 at 14:17 Approved by: Xavi Reed M.D. on 08/04/2024 at 14:25
--- NOTE | 2024-08-04 14:02 | PM.GYNHP.1 ---
History of Present Illness History of Present Illness Reason for admission: missed Narrative: Linh Major is a 29 year old female with of uncertain viability, presented to the ER today for continued heavy vaginal bleeding. She reports passing several large clots at home this morning, with significant abdominal cramping. She was seen at ER beginning of July for vaginal bleeding, and was told she had 3 gestational sacs. She then had vaginal bleeding a few weeks later, was seen in our ER with the same US result (3 empty gestational sacs, subchorionic hemorrhage). Her hCG quants have been downtrending over the last few weeks, consistent with missed . [facility] Medical History Acute gastritis Iron deficiency anemia Surgical History No pertinent past surgical history Family History (System 07/29/24 @ 08:[address]) Grandfather Hypertension Mother No problems noted. Aunt No problems noted. 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 special lisa needs: No travel history: recent seatbelt use: always water heater temp set < 120 deg: Yes working smoke detector in home: Yes fire extinguisher in home: Yes carbon monox detector in home: Yes firearms in home: Yes firearms unloaded and locked: Yes do you feel safe at home: Yes Smoking Status: Never smoker second hand exposure: No alcohol intake: never substance use type: does not use during the past year weight has: increased > 10 lbs well-balanced diet: rarely or never daily servings fruits/ve-1 caffeine: Yes (aware of 200mg limit) Type(s) of exercise: swimming Meds Home Medications and Allergies Home Medications Medication Instructions Recorded Confirmed Type vitamin-ferrous sulfate tab PO 07/26/24 07/26/24 History 27 mg iron-folic acid 0.8 mg tablet cephalexin 500 mg capsule 500 mg PO TID 7 days #21 caps 07/31/24 Rx Allergies Allergy/AdvReac Type Severity Reaction Status Date / Time No Known Drug Allergies Allergy Verified 07/31/24 10:53 Review of Systems Review of Systems ROS: Yes All systems reviewed with the patient and are negative except as otherwise documented Exam Vital Signs (past 8 hours): - 08/04/24 11:27 Temperature 97.5 F L Pulse Rate 72 Respiratory Rate 16 Pulse Oximetry 100 Oxygen Delivery Method Room Air Oxygen Delivery Method Room Air blood pressure in the ER was noted to be normal on the monitor during my interview with the patient Const General: comfortable, well developed and No acute distress Resp Effort & Inspection: normal respiratory effort and able to speak in complete sentences Neuro Cognition: normal cognition Speech: speech normal Extrem General: normal to inspection Psych Mood: congruent mood Affect: normal affect Objective Imaging US - abdomen: Radiologist's impression: FINDINGS: Embryo: There are 3 cystic structures within the uterine fundus, possibly gestational sacs measuring 1.1 cm, 1.0 cm and 0.8 cm. These range from 5 weeks and 4 days to 5 weeks and 6 days based on size. No poles or yolk sacs are identified. Heart rate: None detected, no poles are seen. Maternal organs: Subchronic hemorrhage measuring 2.9 x 2.2 x 1.7 cm, previously 2.6 x 2.3 x 1.1 cm. Ovaries are not well seen. IMPRESSION: Again seen 3 cystic structures within the uterine fundus as described above. If these are gestational sacs, the largest is consistent with 5 weeks and 6 days. Based on last menstrual period, estimated gestational age is 10 weeks and 5 days. Minimal change when compared to ultrasound from 07/11/2024 raising concern for miscarriage and retained products of conception. Recommend clinical correlation. Perigestational bleed is mildly increased in size measuring up to 2.9 cm. We strive to produce accurate, complete, and clear reports of imaging services. To assist us in improving patient care, this report was composed using standard report templates and voice recognition software. Therefore, it may contain abnormal punctuation, insertions and/or omissions. Occasional wrong-word or sound-alike substitutions may occur. Though we review the report and make efforts to correct it, we do recommend that the report be read carefully in proper context to recognize any text inaccuracies. Dictated by: Xavi Reed M.D. on 08/04/2024 at 14:17 Approved by: Xavi Reed M.D. on 08/04/2024 at 14:25 Labs 08/04/24 11:34 08/04/24 11:34 Labs: Laboratory Results - last 24 hr 08/04/24 11:34 WBC 10.8 RBC 4.12 Hgb 12.8 Hct 37.3 MCV 90.4 MCH 31.1 MCHC 34.5 RDW 13.5 Plt Count 320 Neut % (Auto) 71.5 Lymph % (Auto) 20.5 L Starke % (Auto) 5.8 Eos % (Auto) 1.3 L Baso % (Auto) 0.9 Neut # (Auto) 7700 H Lymph # (Auto) 2200 [place] # (Auto) 600 Eos # (Auto) 100 Baso # (Auto) 100 Sodium 135 L Potassium 3.3 L Chloride 108 H Carbon Dioxide 16 L BUN 8 Creatinine 0.57 Estimated GFR > 60 BUN/Creatinine Ratio 14.0 Glucose 113 H Calcium 8.9 Total Bilirubin 0.4 AST 38 H ALT 34 Alkaline Phosphatase 70 Total Protein 7.1 Albumin 4.0 Globulin 3.1 Albumin/Globulin Ratio 1.3 HCG, Quant 62128 Blood Type A Positive Antibody Screen Negative Assessment & Plan Assessment and plan (1) Incomplete miscarriage: Status: Acute Assessment & Plan narrative: 29yo with incomplete miscarriage, desiring surgical management. She was counseled regarding expectant, medical, and surgical management, and patient desires to proceed with suction D&C. She was then counseled and consented for this procedure. -given ongoing heavy bleeding and pain, will proceed with surgery today -plan for same day procedure -200mg doxycycline PO preop Surgery consent We discussed the risks/benefits/alternatives to the proposed procedure, to include but not limited to: -risk of bleeding, requiring medications, blood products, or other procedures as indicated -risk of infection, requiring prolonged hospital stay or other procedures -risk of injury to other structures, including bowel, bladder, blood vessels, nerves, etc. which may also require additional procedures -risk of adverse reaction to anesthesia or medications -risk of venous thromboembolism and associated sequelae -risk of rare complications such as cardiac arrest, or extremely rarely, Patient is aware of the risks, and desires to proceed with planned surgical procedure. Time-Based Coding :: [45min] spent with patient and on the chart (including review of chart, obtaining history, exam, reviewing outside data, placing orders, documenting exam and treatment plan, and counseling patient) on [08/04/24].
[2024-08-04 14:17] VITALS: BP 124/80; PULSE 83; RESP 20; TEMP 36.9; O2SAT 99; BMI 29.8
[2024-08-04] MEDS: LACTATED RINGERS 1,000 ML 42 ML IV ×2 (14:23→15:51)
[2024-08-04] MEDS: DOXYCYCLINE HYCLATE 100 MG TABLET 200 MG PO (14:30)
[2024-08-04] MEDS: ONDANSETRON 4 MG/2 ML INJ IV (15:14)
[2024-08-04] MEDS: SCOPOLAMINE 1 PATCH TOP (15:24)
[2024-08-04] MEDS: ACETAMINOPHEN IV 1,000 MG/100 ML VIAL 400 MG IV (15:45)
--- NOTE | 2024-08-04 15:51 | SUR.OPER ---
Lithotomy on padded OR bed, head on pillow, arms secured on padded arm boards at <90 degrees abduction. Legs secured in padded yellow fins stirrups.
[2024-08-04] MEDS: TRANEXAMIC ACID 1,000 MG in SODIUM CHLORIDE 0.9% 100 ML 200 MG IV (15:56)
--- NOTE | 2024-08-04 16:02 | PM.OP.1 ---
Operative Date/Time/Diagnoses Date of procedure: 08/04/24 Time of procedure: 15:45 Pre-op diagnosis: Incomplete Post-op diagnosis: same Procedure & Clinicians Procedure: Suction dilation and curettage Same procedure as scheduled: Yes Indications: 29yo with incomplete miscarriage with continued heavy bleeding and cramping, desiring surgical management. Thus she was counseled and consented for suction D&C. Surgeon: Ruba Hummel Click Yes if Unassisted: Yes Anesthesia Type: General Operative Notes Findings: Moderate amount of tissue obtained. Slow uterine bleeding noted at the end of the case. Received 1g TXA. Specimen(s): other (uterine contents) Estimated Blood Loss (mL): 100 Blood products transfused: none Procedure in detail: The risks, benefits, indications and alternatives of the procedure were reviewed with the patient and informed consent was obtained. The pt was taken to the operating room where general anesthesia was obtained without difficulty. The pt was then placed in the low lithotomy position using gel-padded Jack Stirrups. SCDs were placed bilaterally for VTE prophylaxis. The pt was then prepped and draped in the sterile fashion. A sterile speculum was placed in the patient?s vagina and the cervix was visualized.? A single tooth tenaculum was used to grasp the anterior lip of the cervix. The cervix was already dilated enough to accomodate an 8mm curved suction curette. The suction catheter was then introduced into the uterine cavity and gently advanced to the uterine fundus. The suction device was then activated and the catheter was rotated to clear the uterus of products of conception. Several passes were performed with a moderate amount of tissue obtained. A gentle, sharp curettage was then performed until a gritty texture was noted. All tissue was sent to pathology for review. The single tooth tenaculum was then removed from the anterior lip of the cervix. The tenaculum sites were noted to be hemostatic. Slow uterine bleeding was noted at the end of the case. All instruments were then removed from the patient?s vagina. At the completion of the case the sponge and needle counts were correct x 2. The patient tolerated the procedure well and was taken to the PACU in stable condition. Complications: none Post-operative Condition: stable Disposition: PACU Plan for aftercare: Discharge to home once meeting criteria.
[2024-08-04 16:10] VITALS: BP 118/73; PULSE 83; RESP 14; TEMP 36.6; O2SAT 97
[2024-08-04 16:14] VITALS: BP 112/68; PULSE 74; RESP 15; O2SAT 98
[2024-08-04 16:20] VITALS: BP 114/76; PULSE 77; RESP 12; O2SAT 99
[2024-08-04 16:25] VITALS: BP 113/74; PULSE 80; RESP 11; TEMP 36.3; O2SAT 100
== END 2024-08-04 17:03 | disposition home or self-care (01) ==
LOC: ED 14:03 → AC 14:34
PROVIDERS: Admitting Provider Student in an Organized Health Care Education/Training Program; Emergency Provider Emergency Medicine; Referring Provider Emergency Medicine; Visit Provider Student in an Organized Health Care Education/Training Program
PROC: (CPT 58120; principal; 2024-08-04 16:30)
DX: O03.4 Incomplete spontaneous abortion without complication (principal); Z3A.12 12 weeks gestation of pregnancy
CPT/HCPCS: 59812; 36415; 76801; 76802; 76817; 80053; 84702; 85025; 86850; 86900; 86901; 96361; 96374; 99282; 99284; G0378; J0131; J0330; J1100; J1885; J2250; J2405; J2704; J3010

== ENCOUNTER → 2024-12-26 14:49 | Outpatient (CLI) | payer OTHER, SELFPAY ==
[2024-12-26 15:44] LABS: Add Manual Diff / Slide Review NO; Hematocrit 37.6 % (36-46); Hemoglobin 13.2 g/dL (12.0-16.0); Lymphocytes Absolute Auto 2000 /uL (1100-4500); Mean Corpuscular HGB Conc 35.1 % (30-36); Mean Corpuscular Hemoglobin 30.6 PG (26-34); Mean Corpuscular Volume 87.3 fL (80-100); Platelet Count 319 X10^3/uL (150-400)
[2024-12-26 15:56] LABS: Natera Collection Specimen Collected
[2024-12-27 09:09] LABS: Rubeola Measles IgG 40.8 AU/mL (Immune >16.4)
[2024-12-27 15:11] LABS: Hepatitis B Surface Antigen NEGATIVE s/c (NEGATIVE)
[2024-12-27 15:26] LABS: HIV 1 & 2 Ab/Ag 4th Gen Combo NEGATIVE (NEGATIVE); Hep C Virus Ab w/Reflex Quant NEGATIVE s/c (NEGATIVE)
== END ==
PROVIDERS: Referring Provider Student in an Organized Health Care Education/Training Program; Visit Provider Student in an Organized Health Care Education/Training Program
DX: Z34.81 Encounter for supervision of other normal pregnancy, first trimester (principal)
CPT/HCPCS: 85025; 86592; 86735; 86762; 86765; 86787; 86803; 86850; 86900; 86901; 87340; 87389

== ENCOUNTER → 2025-01-03 14:55 | Outpatient (CLI) | payer OTHER, SELFPAY ==
--- NOTE | 2025-01-03 14:58 | DI.US.S_ITS ---
PROCEDURE: US OB <= 14 WEEKS FETUS INDICATIONS: Offical Dating US OUTSIDE/PRIOR DATING DATA: Last menstrual period (LMP): October 15, 2024. LMP-based estimated date of delivery (DENA): July 22, 2025. First dating scan (date and location): January 03, 2025. Estimated date of delivery (DENA) from first dating scan: June 24, 2025. TECHNIQUE: Real-time scanning was performed of the fetus and maternal pelvic organs, with image documentation. COMPARISON: [facility], US OB <= 14 WEEKS FETUS, 08/04/2024, 13:33. FINDINGS: Embryo: Single living intrauterine gestation is identified with estimated sonographic gestational age of approximately 15 weeks and 3 days versus approximately 11 weeks and 3 days by last menstrual period. BPD: 3.1 cm, 15 weeks and 5 days . HC: 11.4 cm, 15 weeks and 4 days AC: 9.4 cm, 15 weeks and 4 days FL: 1.7 cm, 14 weeks and 6 days Heart rate: 158 beats per minute Maternal organs: Ovaries not well visualized. IMPRESSION: Single living intrauterine gestation with estimated sonographic gestational age of approximately 15 weeks and 3 days versus 11 weeks and 3 days by last menstrual period. Estimated date of delivery is approximately June 24, 2025 We strive to produce accurate, complete, and clear reports of imaging services. To assist us in improving patient care, this report was composed using standard report templates and voice recognition software. Therefore, it may contain abnormal punctuation, insertions and/or omissions. Occasional wrong-word or sound-alike substitutions may occur. Though we review the report and make efforts to correct it, we do recommend that the report be read carefully in proper context to recognize any text inaccuracies. Dictated by: Parth Jackson M.D. on 01/04/2025 at 10:15 Approved by: Parth Jackson M.D. on 01/04/2025 at 10:19
== END ==
PROVIDERS: Referring Provider Student in an Organized Health Care Education/Training Program; Visit Provider Student in an Organized Health Care Education/Training Program
DX: Z36.87 Encounter for antenatal screening for uncertain dates (principal); Z3A.15 15 weeks gestation of pregnancy
CPT/HCPCS: 76801

== ENCOUNTER → 2025-03-16 08:03 | Outpatient (CLI) | payer OTHER, SELFPAY ==
[2025-03-16 10:15] LABS: Hematocrit 38.3 % (36-46); Hemoglobin 13.1 g/dL (12.0-16.0)
[2025-03-16 10:45] LABS: GTT (PREG) 1 Hour PP 50gm Dose 136 mg/dL (76-139)
== END ==
PROVIDERS: Referring Provider Student in an Organized Health Care Education/Training Program; Visit Provider Student in an Organized Health Care Education/Training Program
DX: Z34.90 Encounter for supervision of normal pregnancy, unspecified, unspecified trimester (principal); Z3A.24 24 weeks gestation of pregnancy
CPT/HCPCS: 36415; 82950; 85014; 85018

== ENCOUNTER → 2025-03-20 08:01 | Outpatient (CLI) | payer OTHER, SELFPAY ==
[2025-03-20 09:08] LABS: Glucose Fasting Gestational 96 mg/dL (76-95)
[2025-03-20 11:03] LABS: Glucose 1 Hour Gest 172 mg/dL (76-180)
[2025-03-20 11:35] LABS: Glucose Tol Interp,Gestational INTERPRETATION
[2025-03-20 12:24] LABS: Glucose 2 Hour Gest 123 mg/dL (76-155)
[2025-03-20 12:26] LABS: Glucose 3 Hour Gest 111 mg/dL (76-140)
== END ==
PROVIDERS: Referring Provider Student in an Organized Health Care Education/Training Program; Visit Provider Student in an Organized Health Care Education/Training Program
DX: O99.810 Abnormal glucose complicating pregnancy (principal); Z3A.24 24 weeks gestation of pregnancy
CPT/HCPCS: 36415; 82951; 82952

== ENCOUNTER → 2025-05-03 10:50 | Outpatient (CLI) | payer OTHER, SELFPAY ==
--- NOTE | 2025-05-03 10:51 | DI.US.S_ITS ---
PROCEDURE: US OB LIMITED INDICATIONS: large for gestation, measure growth OUTSIDE/PRIOR DATING DATA: The calculations are made using the working DENA of 06/24/2025 TECHNIQUE: Real-time scanning was performed of the fetus, with image documentation and biometric measurements. Biophysical profile was also obtained. Endovaginal scanning: Not performed COMPARISON: [facility], OB >= 14 WEEKS FETUS, 02/07/2025, 11:08. FINDINGS: General: A single living intrauterine gestation is present. Presentation: Vertex. Placenta: Placental position is anterior, without previa. Amniotic fluid index: 18.7 cm, normal range is 5-24 cm. Single deepest vertical pocket is 6.3 cm. heart rate: 165 beats per minute. Maternal cervical canal: Closed and measures 4.2 cm long. Normal lower limit is 2.5 cm. biometrics: Biparietal diameter: 8.0 cm, 32 weeks, 1 day. Head circumference: 29.5 cm, 32 weeks, 4 days. Abdominal circumference: 29.8 cm, 33 weeks, 6 days. Femur length: 6.1 cm, 31 weeks, 6 days. Clinically estimated gestational age: 32 weeks, 4 days. Composite gestational age from present scan: 32 weeks, 4 days. Estimated weight and percentile: 2086 g, of 52% IMPRESSION: 1. Single live intrauterine gestation with fetus in vertex presentation. heart rate is 165 beats per minute. Normal LATRELL at 18.7 cm. Cervix is closed and measures 4.2 cm in length. 2. Normal growth. Estimated weight is at 52%. We strive to produce accurate, complete, and clear reports of imaging services. To assist us in improving patient care, this report was composed using standard report templates and voice recognition software. Therefore, it may contain abnormal punctuation, insertions and/or omissions. Occasional wrong-word or sound-alike substitutions may occur. Though we review the report and make efforts to correct it, we do recommend that the report be read carefully in proper context to recognize any text inaccuracies. Dictated by: Patrick Vergara M.D. on 05/03/2025 at 12:39 Approved by: Patrick Vergara M.D. on 05/03/2025 at 12:49
== END ==
LOC: US 10:50
PROVIDERS: Referring Provider Student in an Organized Health Care Education/Training Program; Visit Provider Student in an Organized Health Care Education/Training Program
DX: Z34.83 Encounter for supervision of other normal pregnancy, third trimester (principal); Z3A.32 32 weeks gestation of pregnancy
CPT/HCPCS: 76815